=== PATIENT | female | born 1990 | race Caucasian/White ===

== ENCOUNTER 2016-07-11 16:32 | Emergency (ER) | payer OTHER ==
[~2016-07-11 16:32] MED LIST: FLOMAX(MONOGRA0.4 MG PO; MOTRIN 600 MG600 MG PO; PERCOCET 325 MG1 TA2 PO; PRILOSEC OTC20 MG PO; TRAMADOL50 MG PO; VICODIN 5-3001 EACH PO; ZOFRAN ODT4 MG PO
--- NOTE | 2016-07-11 17:54 | ED MVC/FALL/TRAUMA COMPLAINT ---
History of Present Illness General Chief Complaint: Low Back Pain/Injury Stated Complaint: FALL; BACK PAIN Source: patient Exam Limitations: no limitations Vital Signs & Intake/Output Vital Signs & Intake/Output Vital Signs Date Time Temp Pulse Resp B/P Pulse O2 O2 Flow FiO2 Ox Delivery Rate 07/11 1817 Room Air Room Air 07/11 1809 98.8 76 18 130/67 99 Room Air 07/11 1645 98.1 88 20 150/74 98 Room Air Allergies Coded Allergies: NO KNOWN ALLERGIES (05/25/15) Reconcile Medications Cyclobenzaprine HCl 5 MG TABLET 1 TAB PO TIDPRN PRN muscle spasms Hydrocodone/Acetaminophen (Vicodin 5-300 MG Tablet) 1 EACH TABLET 1 TAB PO BID PRN pain Naproxen (Naprosyn) 500 MG TABLET 1 TAB PO BID PRN pain and inflammation Triage Note: PER PT FELL WHILE AT WORK ABOUT 2 PM SLIPPED ON SNOW CO BACK PAIN. LMP 3 WEEKS AGO. PT DENIES ANY CHANCE OF Triage Nurses Notes Reviewed? yes : No Patient currently breastfeeds: No HPI: This patient is a 25 year old female who presented to the emergency department today for evaluation of lower back pain s/p fall on ice approximately 2 hours prior to arrival. She reported that she slipped and fell backward. She denied hitting her head or LOC. She is reporting 8 out of 10 pain in her lower back which is nonradiation, constant, and sharp. She tried taking Advil without any relief of her symptoms. No palliative factors. Certain movements make it worse. She denied any numbness or tingling in her extremities, no bowel or bladder incontinence, no saddle paresthesia. Past History Travel History Traveled to [place] past 21 day No Medical History Any Pertinent Medical History? see below for history Neurological: NONE EENT: NONE Cardiovascular: NONE Respiratory: NONE Gastrointestinal: NONE Hepatic: NONE Renal: NONE Musculoskeletal: NONE Psychiatric: NONE Endocrine: NONE Surgical History Surgical History: N Psychosocial History What is your primary language [place] Tobacco Use: Never used Family History Hx Contributory? No Review of Systems Review of Systems Constitutional: Reports: no symptoms. Eyes: Reports: no symptoms. Ears, Nose, Throat, Mouth: Reports: no symptoms. Respiratory: Reports: no symptoms. Cardiovascular: Reports: no symptoms. Gastrointestinal/Abdominal: Reports: no symptoms. Genitourinary: Reports: no symptoms. Musculoskeletal: Reports: see HPI. Skin: Reports: no symptoms. Neurological/Psychological: Reports: no symptoms. All Other Systems: Reviewed and Negative Physical Exam Physical Exam General Appearance: well developed/nourished, no apparent distress, alert, awake Comments: Well-developed well-nourished person in no acute distress HEENT: Normal EENT exam, head normocephalic/atraumatic Pupils equally round and reactive to light. Neck: Supple. No midline tenderness Back: Antalgic gait. No midline tenderness. Right lumbar paraspinal muscular pain with muscular spasm noted. Negative straight leg raise bilaterally Cardiovascular: Regular rate and rhythm with no murmurs Respiratory: No respiratory distress. Speaking in full sentences Extremities: Normal and equal pulses Neuro: Alert oriented x3, cranial nerves II through XII grossly intact. Skin: No appreciable rash on exposed skin, skin is warm and dry. Psych: Mood and affect is normal Core Measures ACS in differential dx? No Severe Sepsis Present: No Septic Shock Present: No Progress Differential Diagnosis: abd injury, C/T/L spine injury, ext injury, ICH, pelvis injury, spinal cord injury, muscle strain Plan of Care: This patient is a 25 year old female who presented for evaluation s/p fall on ice. Right lower back pain. Physical examination with right lumbar paraspinal muscle tenderness. No midline tenderness. No paresthesias or radiation of the pain. Likely muscle strain/contusion. Departure Departure Disposition: HOME OR SELF CARE Condition: Stable Clinical Impression Primary Impression: Contusion Qualifiers: Encounter type: initial encounter Contusion area: lower back Qualified Code: S30.0XXA - Contusion of lower back and pelvis, initial encounter Referrals: CHIKI PETERSON,ERNA HELTON MD,OMAR (PCP/Family) Additional Instructions: Take Flexaril as prescribed for muscle relaxation. Take Naproxen as prescribed for pain and inflammation. Rest. Gentle stretching. Apply ice or heat to the affected area as needed. No strenuous activity or heavy lifting. Follow-up with the orthopedic physician whose information has been provided to you for any persistent symptoms. Return for any worsening symptoms or concerns. Departure Forms: Customer Survey General Discharge Information Prescriptions: Current Visit Scripts Cyclobenzaprine HCl 1 TAB PO TIDPRN PRN muscle spasms #12 TAB Naproxen (Naprosyn) 1 TAB PO BID PRN pain and inflammation #20 TAB
[2016-07-11] MEDS ORDERED: CYCLOBENZAPRINE5 M2 PO (17:56)
[2016-07-11] MEDS ORDERED: NAPROSYN500 M1 PO (17:56)
[2016-07-11 18:09] VITALS: BP 130/67
== END 2016-07-11 18:18 ==
LOC: ERH 16:32
DX: S30.0XXA Contusion of lower back and pelvis, initial encounter (principal); W00.0XXA Fall on same level due to ice and snow, initial encounter; Y93.9 Activity, unspecified; Y92.9 Unspecified place or not applicable